=== PATIENT | male | born 1980 | race Caucasian/White ===

== ENCOUNTER 2017-06-09 11:31 | Emergency (ER) | payer MEDICAID ==
[~2017-06-09] VITALS: Ht 167.6 cm; Wt 70.5 kg
[2017-06-09 11:31] VITALS: BP 120/74
== END 2017-06-09 13:41 | disposition left against medical advice (07) ==
LOC: M ED 11:31
DX: R10.9 Unspecified abdominal pain (principal); Z53.29 Procedure and treatment not carried out because of patient's decision for other reasons

== ENCOUNTER 2017-07-11 10:12 | Emergency (ER) | payer MEDICAID, OTHER ==
[~2017-07-11] VITALS: Ht 170.2 cm; Wt 70.5 kg
[2017-07-11 10:13] VITALS: BP 128/90
[2017-07-11] MEDS ORDERED: ONDA4TAB6 (10:29)
[2017-07-11] MEDS ORDERED: NORC1TAB4 PO (10:29)
== END 2017-07-11 11:27 | disposition home or self-care (01) ==
LOC: M ED 10:12
DX: F43.20 Adjustment disorder, unspecified (principal)

== ENCOUNTER 2017-08-07 06:38 | Emergency (ER) | payer OTHER ==
[~2017-08-07] VITALS: Ht 167.6 cm; Wt 70.5 kg
[~2017-08-07 06:38] MED LIST: NORC1TAB4 PO; ONDA4TAB6
[2017-08-07 07:36] LABS: BASO % 0.3 % (0.0-1.0); EOS # 0.1 10^3/uL (0.0-0.50); IMMATURE GRANULOCYTE % 0.1 % (0-0); LYMPH # 1.5 10^3/uL (1.5-4.5); LYMPH % 21.3 % (24.0-44.0); MEAN CORPUSCULAR HEMOGLOBIN 33.3 pg (27.0-33.0); MEAN CORPUSCULAR HGB CONC 35.9 g/dl (32.0-36.5); MEAN CORPUSCULAR VOLUME 92.6 fl (80.0-96.0); MONO # 0.4 10^3/uL (0.0-0.8); MONO % 6.2 % (0.0-5.0); NEUTROPHILS % 71.1 % (36.0-66.0); PLATELET COUNT, AUTOMATED 174 10^3/uL (150-450); RED CELL DISTRIBUTION WIDTH 11.6 % (11.5-14.5)
[2017-08-07 08:08] LABS: ALBUMIN 3.8 GM/DL (3.2-5.2); ALBUMIN/GLOBULIN RATIO 1.31 (1.00-1.93); ALKALINE PHOSPHATASE 91 U/L (45-117); ALT/SGPT 24 U/L (12-78); AMYLASE 70 U/L (25-115); ANION GAP 6 MEQ/L (8-16); AST/SGOT 17 U/L (7-37); BILIRUBIN,DIRECT 0.4 MG/DL (0.0-0.2); BILIRUBIN,TOTAL 1.7 MG/DL (0.2-1.0); BLOOD UREA NITROGEN 12 MG/DL (7-18); CALCIUM LEVEL 8.5 MG/DL (8.5-10.1); CARBON DIOXIDE LEVEL 30 MEQ/L (21-32); CHLORIDE LEVEL 106 MEQ/L (98-107); CREATININE FOR GFR 0.99 MG/DL (0.70-1.30); GLOMERULAR FILTRATION RATE > 60.0 (>60); GLUCOSE, FASTING 93 MG/DL (70-105); SODIUM LEVEL 142 MEQ/L (136-145); TOTAL PROTEIN 6.7 GM/DL (6.4-8.2)
[2017-08-07 09:06] VITALS: BP 126/70
== END 2017-08-07 09:17 | disposition home or self-care (01) ==
LOC: M ED 06:38
DX: S39.011A Strain of muscle, fascia and tendon of abdomen, initial encounter (principal); X50.0XXA Overexertion from strenuous movement or load, initial encounter; Y92.89 Other specified places as the place of occurrence of the external cause; Y93.89 Activity, other specified; Y99.0 Civilian activity done for income or pay; E80.4 Gilbert syndrome; Z90.49 Acquired absence of other specified parts of digestive tract

== ENCOUNTER 2017-11-25 17:49 | Emergency (ER) | payer OTHER ==
[2017-11-25] MEDS: diphenhydrAMINE 50 MG CAP PO ×2 (19:28→21:30)
[2017-11-25] MEDS: NAPROXEN 250 MG TAB PO (19:28)
[2017-11-25] MEDS: METOCLOPRAMIDE 10 MG TAB PO (19:28)
[2017-11-25] MEDS: MAGIC MOUTHWASH SUSPENSION BTL SSP (21:03)
[2017-11-26] MEDS ORDERED: MAGIC MOUTHWASH SUSPENSION BTL SSP (07:30)
== END 2017-11-25 21:35 | disposition home or self-care (01) ==
LOC: M ED 17:49
DX: G44.209 Tension-type headache, unspecified, not intractable (principal); J02.9 Acute pharyngitis, unspecified
CPT/HCPCS: 99283

== ENCOUNTER 2017-12-04 15:15 | Emergency (ER) | payer OTHER | END 2017-12-04 18:20 | disposition home or self-care (01) | LOC: M ED 15:15 | DX: S39.012A Strain of muscle, fascia and tendon of lower back, initial encounter (principal); S30.0XXA Contusion of lower back and pelvis, initial encounter; W10.8XXA Fall (on) (from) other stairs and steps, initial encounter; Y92.89 Other specified places as the place of occurrence of the external cause | CPT/HCPCS: 72110 ==

== ENCOUNTER 2018-05-11 19:46 | Emergency (ER) | payer OTHER ==
[2018-05-11 20:46] LABS: HEMATOCRIT 45.2 % (42.0-52.0); HEMOGLOBIN 16.3 g/dl (13.5-17.5); MEAN CORPUSCULAR HGB CONC 36.1 g/dl (32.0-36.5); MEAN CORPUSCULAR VOLUME 91.5 fl (80.0-96.0); PLATELET COUNT, AUTOMATED 187 10^3/uL (150-450); RED BLOOD COUNT 4.94 10^6/uL (4.30-6.10); RED CELL DISTRIBUTION WIDTH 11.6 % (11.5-14.5); WHITE BLOOD COUNT 6.6 10^3/uL (4.0-10.0)
[2018-05-11 21:03] LABS: AMPHETAMINES LEVEL URINE NEGATIVE (NEGATIVE); BARBITURATES URINE NEGATIVE (NEGATIVE); BENZODIAZEPINES URINE NEGATIVE (NEGATIVE); CANNABINOIDS URINE POSITIVE (NEGATIVE); COCAINE METABOLITE URINE NEGATIVE (NEGATIVE); METHADONE URINE NEGATIVE (NEGATIVE); OPIATES URINE NEGATIVE (NEGATIVE); PHENCYCLIDINE URINE NEGATIVE (NEGATIVE)
[2018-05-11 21:10] LABS: ALBUMIN 4.2 GM/DL (3.2-5.2); ALBUMIN/GLOBULIN RATIO 1.24 (1.00-1.93); ALKALINE PHOSPHATASE 81 U/L (45-117); ALT/SGPT 31 U/L (12-78); ANION GAP 9 MEQ/L (8-16); AST/SGOT 22 U/L (7-37); BILIRUBIN,DIRECT 0.3 MG/DL (0.0-0.2); BILIRUBIN,TOTAL 4.7 MG/DL (0.2-1.0); BLOOD UREA NITROGEN 16 MG/DL (7-18); CALCIUM LEVEL 8.8 MG/DL (8.5-10.1); CARBON DIOXIDE LEVEL 27 MEQ/L (21-32); CHLORIDE LEVEL 107 MEQ/L (98-107); CREATININE FOR GFR 1.33 MG/DL (0.70-1.30); GLOMERULAR FILTRATION RATE > 60.0 (>60); GLUCOSE, FASTING 103 MG/DL (70-100); SALICYLATE LEVEL < 1.7 MG/DL (5.0-30.0); SODIUM LEVEL 143 MEQ/L (136-145); THYROID STIMULATING HORMONE 0.702 uIU/ML (0.358-3.740); TOTAL PROTEIN 7.6 GM/DL (6.4-8.2)
[2018-05-11 21:11] LABS: ACETAMINOPHEN LEVEL < 2.0 UG/ML (10.0-30.0); ETHYL ALCOHOL (ETHANOL) < 0.003 % (0.000-0.010)
== END 2018-05-11 22:15 | disposition home or self-care (01) ==
LOC: M ED 19:46
DX: Z60.9 Problem related to social environment, unspecified (principal); F41.9 Anxiety disorder, unspecified; F12.10 Cannabis abuse, uncomplicated; Z79.899 Other long term (current) drug therapy
CPT/HCPCS: 80320

== ENCOUNTER 2018-07-30 12:32 | Emergency (ER) | payer OTHER ==
[2018-07-30] MEDS ORDERED: KETOROLAC 60 MG/2 ML VIAL (J1885) IM (14:00)
[2018-07-30] MEDS: METHOCARBAMOL 500 MG TAB PO (14:00)
== END 2018-07-30 14:08 | disposition home or self-care (01) ==
LOC: M ED 12:32
DX: M54.5 Low back pain (principal); R16.1 Splenomegaly, not elsewhere classified; W01.10XA Fall on same level from slipping, tripping and stumbling with subsequent striking against unspecified object, initial encounter; Y92.9 Unspecified place or not applicable; Y93.9 Activity, unspecified; Y99.9 Unspecified external cause status; F41.9 Anxiety disorder, unspecified; F32.9 Major depressive disorder, single episode, unspecified; N44.00 Torsion of testis, unspecified; K80.20 Calculus of gallbladder without cholecystitis without obstruction; Z79.899 Other long term (current) drug therapy
CPT/HCPCS: 72110

== ENCOUNTER 2025-03-25 13:40 | Emergency (ER) | payer OTHER ==
[~2025-03-25] VITALS: Ht 170.2 cm; Wt 69.0 kg
[~2025-03-25 13:40] MED LIST changes: +ABIL1TAB13; +BENA25TA10 PO; +CYCL-707 PO; +HYDR1CAP25; +IBUP-1022 PO; +MACR100C43; +NAPR-837 PO; +NAPR-885 PO; -NORC1TAB4 PO; +NORC1TAB7 PO; +OLAN2.5T53; +ONDA-282; -ONDA4TAB6; +REGL10TA6 PO; +TRAZ-252; +[UNRECOGNIZED DRUG - REMARK]
[2025-03-25 13:42] VITALS: BP 129/72; TEMP 98.3; O2SAT 97
[2025-03-25] MEDS ORDERED: PENI500T (13:53)
== END 2025-03-25 15:10 | disposition home or self-care (01) ==
LOC: M ED 13:40
DX: K08.89 Other specified disorders of teeth and supporting structures (principal); F32.A Depression, unspecified; F41.9 Anxiety disorder, unspecified